=== PATIENT | male | born 1945 | race Caucasian/White ===

== ENCOUNTER 2017-12-18 09:46 | Day surgery (SDC) | payer MEDICARE ==
[~2017-12-18] VITALS: Ht 177.8 cm; Wt 99.5 kg
[~2017-12-18 09:46] MED LIST: ASPI-496 PO; FURO-93 PO; POTA10TA11 PO
[2017-12-18 10:23] VITALS: BP 155/98
[2017-12-18] MEDS ORDERED: LISI-167 PO (10:35)
[2017-12-18] MEDS ORDERED: OXYC-307 PO (10:36)
[2017-12-18] MEDS ORDERED: VERAPAMIL 2.5 MG/ML, 2ML ONE (11:42)
[2017-12-18] MEDS ORDERED: TICAGRELOR 90 MG TABLET ONE (11:42)
[2017-12-18] MEDS ORDERED: NITROGLYCERIN 5 MG/ML, 10ML ONE (11:42)
[2017-12-18] MEDS ORDERED: BIVALIRUDIN 250 MG ONE (11:42)
[2017-12-18] MEDS ORDERED: FENTANYL PF 100 MCG/2ML ONE (11:42)
[2017-12-18] MEDS ORDERED: HEPARIN 1,000 UNITS/ML, 10ML ONE (11:43)
[2017-12-18] MEDS ORDERED: LIDOCAINE-MPF 2% ,5ML ONE (11:43)
[2017-12-18] MEDS ORDERED: MIDAZOLAM 1 MG/ML, 2ML ONE ×2 (11:43→12:37)
== END 2017-12-18 15:39 | disposition home or self-care (01) ==
LOC: CACL 09:46
PROVIDERS: ATTEND Internal Medicine Cardiovascular Disease
DX: I25.10 Atherosclerotic heart disease of native coronary artery without angina pectoris (principal); I27.29 Other secondary pulmonary hypertension; I10 Essential (primary) hypertension; Z79.82 Long term (current) use of aspirin; Z79.899 Other long term (current) drug therapy; Z72.89 Other problems related to lifestyle
CPT/HCPCS: 93460; 99156; C1769; C1894; J1644; J2250; J3010; J3490; Q9967; J0583

== ENCOUNTER 2018-03-21 15:51 | Inpatient (IN) | payer MEDICARE ==
[~2018-03-21] VITALS: Ht 177.8 cm; Wt 98.6 kg
[~2018-03-21 15:51] MED LIST changes: +AMIO200T42 PO; +DOCU-131 PO; +LISI-167 PO; +OXYC-307 PO; +OXYC5TAB3 PO; +WARF7.5T PO
[2018-03-21 16:34] LABS: ALANINE AMINOTRANSFERASE 26 U/L (12-78); ALBUMIN 3.6 g/dL (3.4-5.0); ANION GAP 9 mmol/L (5-15); CALCIUM 8.5 mg/dL (8.5-10.1); CHLORIDE 109 mmol/L (98-107); CREATININE 1.51 mg/dL (0.7-1.3)
[2018-03-21 16:36] LABS: MEAN CORPUSCULAR HGB CONC 31.3 g/dL (33.2-36.2); MEAN CORPUSCULAR VOLUME 80.1 fL (81-97); MEAN PLATELET VOLUME 8.5 fL (7.4-10.4); PLATELET COUNT 274 x10^3/uL (130-400); RED BLOOD COUNT 4.04 x10^6/uL (4.38-5.82); RED CELL DISTRIBUTION WIDTH 17.8 % (9.4-14.8)
[2018-03-21 16:39] LABS: ALKALINE PHOSPHATASE 124 U/L (45-117); BILIRUBIN,TOTAL 0.9 mg/dL (0.2-1.0); TOTAL PROTEIN 7.1 g/dL (6.4-8.2); TROPONIN I 0.019 ng/mL (0.000-0.045)
[2018-03-21 16:49] LABS: INTERNATIONAL NORMALIZED RATIO 3.41 (0.93-1.1); PROTHROMBIN TIME 34.5 Seconds (9.6-11.5)
[2018-03-21 16:58] LABS: BASOPHILS # (AUTO) 0.02 x10^3/uL (0-0.1); BASOPHILS % (AUTO) 0 % (0-1); EOSINOPHILS # (AUTO) 0.11 x10^3/uL (0-0.4); EOSINOPHILS % (AUTO) 2 % (1-7); LYMPHOCYTES # (AUTO) 1.72 x10^3/uL (1-3.4); LYMPHOCYTES % (AUTO) 29 % (22-44); MD NO; MONOCYTES # (AUTO) 0.71 x10^3/uL (0.2-0.8); MONOCYTES % (AUTO) 12 % (2-9); NEUTROPHILS # (AUTO) 3.48 x10^3/uL (1.8-6.8); NEUTROPHILS % (AUTO) 58 % (42-75)
[2018-03-21] MEDS ORDERED: FUROSEMIDE 40 MG/4 ML ONE (16:58)
[2018-03-21] MEDS ORDERED: FUROSEMIDE 40 MG/4 ML IV ONE (17:00)
[2018-03-21] MEDS ORDERED: AMIO200T42 PO (19:55)
[2018-03-21] MEDS ORDERED: FURO20TA3 PO (19:55)
[2018-03-21] MEDS ORDERED: AMLO-150 PO (19:56)
[2018-03-21] MEDS ORDERED: ASPI-515 PO (19:56)
[2018-03-21] MEDS ORDERED: WARF4TAB65 PO (19:57)
[2018-03-21] MEDS ORDERED: ONDANSETRON ODT 4 MG PO PRN (20:00)
[2018-03-21] MEDS ORDERED: LIDODERM 5% PATCH TD PRN (20:00)
[2018-03-21] MEDS ORDERED: ACETAMINOPHEN 325 MG TABLET PO PRN (20:00)
[2018-03-21] MEDS ORDERED: hydrALAzine 20 MG/ML, 1ML IVPush PRN (20:00)
[2018-03-21] MEDS ORDERED: TEMAZEPAM 15 MG CAPSULE PO PRN (20:00)
[2018-03-21] MEDS ORDERED: DOCUSATE 100 MG CAPSULE PO PRN (20:00)
[2018-03-21 23:00] VITALS: BP 141/87
[2018-03-22] MEDS ORDERED: OXYcodone IR 5MG TABLET PO PRN
[2018-03-22 01:28] VITALS: BP 104/64
[2018-03-22] MEDS ORDERED: WARFARIN 2 MG TABLET PO-COUM ONE ×2 (02:00→18:00)
[2018-03-22 05:45] LABS: INTERNATIONAL NORMALIZED RATIO 2.55 (0.93-1.1); PROTHROMBIN TIME 26.1 Seconds (9.6-11.5)
[2018-03-22 05:59] LABS: CHLORIDE 108 mmol/L (98-107)
[2018-03-22 06:13] LABS: ANION GAP 8 mmol/L (5-15); CALCIUM 8.2 mg/dL (8.5-10.1); CREATININE 1.77 mg/dL (0.7-1.3)
[2018-03-22] MEDS ORDERED: FUROSEMIDE 40 MG/4 ML IV SCH (07:30)
[2018-03-22] MEDS: WARFARIN MECH. VALVE PROTOCOL 2.5 to 3.5 XX SCH (08:10)
[2018-03-22 08:33] VITALS: BP 112/69
[2018-03-22] MEDS: FUROSEMIDE 40 MG/4 ML IV SCH (08:37)
[2018-03-22] MEDS: ASPIRIN 81 MG TABLET EC PO SCH (08:37)
[2018-03-22] MEDS: AMIODARONE 200 MG TABLET PO SCH (08:37)
[2018-03-22] MEDS: AMLODIPINE 5 MG TABLET PO SCH (08:37)
[2018-03-22] MEDS ORDERED: TEMPLATE NON-FORMULARY MED. (Warfarin Sodium** 4 MG) PO SCH (09:00)
[2018-03-22 13:45] VITALS: BP 114/78
[2018-03-22 19:16] VITALS: BP 120/81
[2018-03-23 01:49] VITALS: BP 107/67
[2018-03-23 05:26] LABS: BASOPHILS # (AUTO) 0.01 x10^3/uL (0-0.1); BASOPHILS % (AUTO) 0 % (0-1); EOSINOPHILS # (AUTO) 0.19 x10^3/uL (0-0.4); EOSINOPHILS % (AUTO) 3 % (1-7); LYMPHOCYTES # (AUTO) 1.81 x10^3/uL (1-3.4); LYMPHOCYTES % (AUTO) 28 % (22-44); MD NO; MEAN CORPUSCULAR HEMOGLOBIN 25.3 pg (27.5-34.5); MEAN CORPUSCULAR HGB CONC 31.7 g/dL (33.2-36.2); MEAN CORPUSCULAR VOLUME 79.9 fL (81-97); MEAN PLATELET VOLUME 8.5 fL (7.4-10.4); MONOCYTES # (AUTO) 0.77 x10^3/uL (0.2-0.8); MONOCYTES % (AUTO) 12 % (2-9); NEUTROPHILS # (AUTO) 3.59 x10^3/uL (1.8-6.8); NEUTROPHILS % (AUTO) 56 % (42-75); PLATELET COUNT 265 x10^3/uL (130-400); RED BLOOD COUNT 4.18 x10^6/uL (4.38-5.82); RED CELL DISTRIBUTION WIDTH 17.7 % (9.4-14.8)
[2018-03-23 05:30] LABS: INTERNATIONAL NORMALIZED RATIO 2.15 (0.93-1.1); PROTHROMBIN TIME 22.1 Seconds (9.6-11.5)
[2018-03-23 05:32] LABS: CHLORIDE 108 mmol/L (98-107)
[2018-03-23 05:40] LABS: ALANINE AMINOTRANSFERASE 21 U/L (12-78); ALBUMIN 3.1 g/dL (3.4-5.0); ALKALINE PHOSPHATASE 105 U/L (45-117); ANION GAP 6 mmol/L (5-15); BILIRUBIN,TOTAL 0.6 mg/dL (0.2-1.0); CALCIUM 8.2 mg/dL (8.5-10.1); CREATININE 1.37 mg/dL (0.7-1.3); TOTAL PROTEIN 6.4 g/dL (6.4-8.2)
[2018-03-23] MEDS: FUROSEMIDE 40 MG/4 ML IV SCH ×2 (09:00→09:32)
[2018-03-23 09:02] VITALS: BP 121/78
[2018-03-23] MEDS: ASPIRIN 81 MG TABLET EC PO SCH (09:32)
[2018-03-23] MEDS: AMLODIPINE 5 MG TABLET PO SCH (09:32)
[2018-03-23] MEDS: AMIODARONE 200 MG TABLET PO SCH (09:32)
[2018-03-23] MEDS: WARFARIN MECH. VALVE PROTOCOL 2.5 to 3.5 XX SCH (09:32)
[2018-03-23] MEDS ORDERED: FUROSEMIDE 40 MG TABLET PO SCH (09:40)
[2018-03-23] MEDS ORDERED: WARFARIN 5 MG TABLET PO-COUM ONE (18:00)
== END 2018-03-23 10:56 | disposition home or self-care (01) | DRG 682 ==
LOC: ED 16:11 → EDIP 19:07 → 5SO 20:05 → DCLOUNGE 03-23 10:52
PROVIDERS: ADMIT Internal Medicine; ATTEND Internal Medicine
DX: N17.0 Acute kidney failure with tubular necrosis (principal); I50.33 Acute on chronic diastolic (congestive) heart failure; I48.92 Unspecified atrial flutter; I11.0 Hypertensive heart disease with heart failure; I27.20 Pulmonary hypertension, unspecified; Z96.643 Presence of artificial hip joint, bilateral; I48.91 Unspecified atrial fibrillation; G47.33 Obstructive sleep apnea (adult) (pediatric); Z79.01 Long term (current) use of anticoagulants; Z95.2 Presence of prosthetic heart valve; Z95.0 Presence of cardiac pacemaker; Z87.01 Personal history of pneumonia (recurrent)
CPT/HCPCS: 36415; 71045; 80048; 80053; 83880; 84484; 85025; 85379; 85610; 93005; 93306; 96374; G0378; J1940

== ENCOUNTER 2018-06-28 06:43 | Day surgery (SDC) | payer MEDICARE ==
[~2018-06-28] VITALS: Ht 177.8 cm; Wt 95.5 kg
[~2018-06-28 06:43] MED LIST changes: +AMLO-150 PO; +ASPI-515 PO; +FURO20TA3 PO; +WARF4TAB65 PO
[2018-06-28] MEDS ORDERED: SODIUM CHLORIDE 0.9% 1,000 ML IV SCH (06:50)
[2018-06-28] MEDS ORDERED: LIDOCAINE 1%, 20ML ONE (07:03)
[2018-06-28] MEDS ORDERED: WARF1TAB9 PO (07:12)
[2018-06-28] MEDS ORDERED: LOSA25TA25 PO (07:12)
[2018-06-28] MEDS ORDERED: POTA20TA14 PO (07:12)
[2018-06-28 07:16] VITALS: BP 114/70
[2018-06-28] MEDS ORDERED: MIDAZOLAM 1 MG/ML, 2ML ONE (07:59)
[2018-06-28] MEDS ORDERED: FENTANYL PF 250 MCG/5ML ONE (07:59)
[2018-06-28] MEDS ORDERED: SUCCINYLCHOLINE 20 MG/ML, 10ML ONE (08:03)
[2018-06-28 08:06] LABS: INTERNATIONAL NORMALIZED RATIO 1.79 (0.93-1.1); PROTHROMBIN TIME 18.4 Seconds (9.6-11.5)
[2018-06-28] MEDS ORDERED: ROCURONIUM 10MG/ML,5ML ONE (08:25)
[2018-06-28] MEDS ORDERED: CEFAZOLIN 1,000 MG ONE ×3 (08:25→09:06)
[2018-06-28] MEDS ORDERED: DEXAMETHASONE 4 MG/ML, 5ML ONE (08:25)
[2018-06-28] MEDS ORDERED: PROPOFOL 10 MG/ML, 20ML ONE (08:25)
[2018-06-28] MEDS ORDERED: EPHEDRINE 50 MG/ML, 1ML ONE (08:26)
[2018-06-28] MEDS ORDERED: ONDANSETRON 2MG/ML, 2ML ONE ×2 (09:06)
[2018-06-28] MEDS ORDERED: NALOXONE 0.4 MG/ML, 1ML ONE (09:17)
[2018-06-28] MEDS ORDERED: ACETAMINOPHEN 325 MG TABLET PO PRN (09:30)
[2018-06-28] MEDS ORDERED: ALBUTEROL SULFATE 2.5 MG/3 ML NPPB PRN (10:00)
[2018-06-28] MEDS ORDERED: HYDROmorphone 1 MG/ML, 1ML AMP IVPush PRN (10:00)
[2018-06-28] MEDS ORDERED: HALOPERIDOL 5 MG/ML IV PRN (10:00)
[2018-06-28] MEDS ORDERED: MIDAZOLAM 1 MG/ML, 2ML IV PRN (10:00)
[2018-06-28] MEDS ORDERED: LABETALOL 5MG/ML, 20ML IV PRN (10:00)
[2018-06-28] MEDS ORDERED: MORPHINE SULFATE 4 MG/ML, 1ML IVPush PRN (10:00)
[2018-06-28] MEDS ORDERED: PROMETHAZINE 12.5 MG SUPP PR PRN (10:00)
[2018-06-28] MEDS ORDERED: ONDANSETRON ODT 8 MG PO PRN (10:00)
[2018-06-28] MEDS ORDERED: MEPERIDINE/PF 25MG/0.5ML IVPush PRN (10:00)
[2018-06-28] MEDS ORDERED: FENTANYL PF 100 MCG/2ML IV PRN (10:00)
[2018-06-28] MEDS ORDERED: OXYcodone 5 MG/5 ML ORAL.SOL UDC PO PRN (10:00)
[2018-06-28] MEDS ORDERED: hydrALAzine 20 MG/ML, 1ML IV PRN (10:00)
[2018-06-28] MEDS ORDERED: ONDANSETRON 2MG/ML, 2ML IV PRN (10:00)
[2018-06-28] MEDS ORDERED: DIAZEPAM 5 MG/ML, 2ML IVPush PRN (10:00)
[2018-06-28] MEDS ORDERED: PROMETHAZINE 25 MG/ML, 1ML IV PRN (10:00)
== END 2018-06-28 14:37 | disposition home or self-care (01) ==
LOC: CACL 06:43
PROVIDERS: ATTEND Internal Medicine Cardiovascular Disease
DX: I48.92 Unspecified atrial flutter (principal); I50.9 Heart failure, unspecified; N18.9 Chronic kidney disease, unspecified; Z79.82 Long term (current) use of aspirin
CPT/HCPCS: 36415; 85610; 93613; 93621; 93653; C1730; C1731; C1732; C1766; C1894; J0330; J0690; J1100; J2250; J2310; J2405; J2704; J3010; J3490

== ENCOUNTER → 2018-07-27 | Outpatient (CLI) | payer MEDICARE ==
[~2018-07-27] MED LIST changes: +LOSA25TA25 PO; +OMNIPAQUE 350 MG/ML, 100ML BOTTLE ONE; +POTA20TA14 PO; +WARF1TAB9 PO
== END | disposition home or self-care (01) ==
LOC: CFH 14:10
PROVIDERS: ATTEND Family Medicine
DX: R91.1 Solitary pulmonary nodule (principal); R06.02 Shortness of breath
CPT/HCPCS: 71275; Q9967

== ENCOUNTER → 2020-02-25 | Outpatient (CLI) | payer MEDICARE ==
[~2020-02-25] MED LIST changes: -OMNIPAQUE 350 MG/ML, 100ML BOTTLE ONE
== END | disposition home or self-care (01) ==
LOC: CVU 06:54
PROVIDERS: ATTEND Family Medicine
DX: I08.3 Combined rheumatic disorders of mitral, aortic and tricuspid valves (principal); I11.9 Hypertensive heart disease without heart failure; R06.02 Shortness of breath
CPT/HCPCS: 93306